=== PATIENT | male | born 1960 | race Caucasian/White ===

== ENCOUNTER → 2017-03-14 | Outpatient (CLI) | payer BC ==
[~2017-03-14] MED LIST: FISH OIL 1000MG1 CAP PO; HYZAAR 25 MG-101 TAB PO; LIPITOR 10MG10 MG PO; NORVASC 5MG5 MG/TAB PO; PHENTERMINE15 MG PO
== END ==
LOC: MC.RAD 12:49
DX: N62 Hypertrophy of breast (principal); N64.4 Mastodynia

== ENCOUNTER 2018-03-17 06:14 | Day surgery (SDC) | payer BC ==
[~2018-03-17] VITALS: Ht 180.3 cm; Wt 140.9 kg
[2018-03-17] MEDS ORDERED: NORVASC 5MG5 MG/TAB PO (06:36)
[2018-03-17] MEDS ORDERED: HYZAAR 25 MG-101 TAB PO (06:37)
[2018-03-17] MEDS ORDERED: LIPITOR 10MG10 MG PO (06:37)
[2018-03-17 06:38] VITALS: BP 156/100; PULSE 97; TEMP 97.7
[2018-03-17] MEDS ORDERED: TRIAMCINOLONE A15 G3 TP (06:38)
[2018-03-17 08:05] VITALS: BP 131/82; PULSE 98; TEMP 98.9
[2018-03-17 08:20] VITALS: BP 115/86; PULSE 96
[2018-03-17 08:35] VITALS: BP 137/85; PULSE 98
== END 2018-03-17 08:50 | disposition home or self-care (01) ==
LOC: SDCO 06:14
DX: Z12.11 Encounter for screening for malignant neoplasm of colon (principal); Z86.010 Personal history of colon polyps; K57.30 Diverticulosis of large intestine without perforation or abscess without bleeding
CPT/HCPCS: J2250; J2405; J3010; J7030